=== PATIENT | male | born 2000 | race African-American/Black ===

== ENCOUNTER 2023-02-22 17:40 | Emergency (ER) | payer SELFPAY ==
--- NOTE | ~2023-02-22 | XR_ITS ---
EXAMINATION: XR wrist RT min 3V DATE: 02/22/2023 18:06 INDICATION: Right wrist pain radiating into the hand TECHNIQUE: Posteroanterior, ulnar deviation, oblique, and lateral views of the right wrist were obtai dian. COMPARISON: none FINDINGS: Old healed fracture deformity at the mid to distal right fifth metacarpal. Alignment is otherwise nor mal. No acute fractures identified. Joint spaces are normal. No erosions. Soft tissues are unremarkab le. IMPRESSION: 1. Old healed boxer's fracture of the right fifth metacarpal. No acute osseous abnormality. Reviewed, dictated and finalized at location A.
[2023-02-22 17:57] VITALS: BP 140/83; PULSE 117; RESP 16; TEMP 37; O2SAT 100
--- NOTE | 2023-02-22 18:24 | ED.UPPEXIN ---
HPI - Extremity Injury (Upper) General Chief Complaint: Extremity Injury, Upper Stated Complaint: rt wrist injury Time Seen by Provider: 02/22/23 18:18 Source: patient and RN notes reviewed Mode of arrival: ambulatory Limitations: no limitations History of Present Illness HPI narrative: Patient presents today complaining of right wrist pain. He punched a solid wood armoire yesterday at home after he was mad. Denies numbness or tingling in the arm or hand. Currently rates his pain 7/10 intermittently. Pain increases when he swings a hammer at work. He has been taking ibuprofen without relief. Previous fracture in the 5th metacarpal. Related Data Allergies Allergy/AdvReac Type Severity Reaction Status Date / Time No Known Allergies Allergy Verified 09/09/13 15:01 Review of Systems Review of Systems: CONSTITUTIONAL: Denies body aches, fever, chills, or sweats. EYES: Denies visual changes, redness, or discharge. ENT: Denies rhinorrhea, congestion, sore throat, or otalgia. CARDIOVASCULAR: Denies chest pain, palpitations, or edema. RESPIRATORY: Denies cough or dyspnea. GASTROINTESTINAL: Denies abdominal pain, nausea, vomiting, or diarrhea. GENITOURINARY: Denies dysuria or hematuria. SKIN: Denies rash, itching, or wounds. MUSCULOSKELETAL: + right wrist injury NEUROLOGIC: Denies headache, numbness, tingling, or weakness. PSYCH: Denies depression or anxiety. PMFSH Comments At time of signature, I have reviewed and agree with nursing past medical, surgical, social and family history unless otherwise noted. Please see nursing chart for further information. There is no relevant family history pertinent to the presenting complaint Exam Narrative: GENERAL: Well-appearing, well-nourished, and in no acute distress. HEAD: Normocephalic, atraumatic. EYES: EOMI. No redness or drainage. Conjunctivae normal. ENT: Mucous membranes pink and moist. NECK: Normal AROM. CHEST: No respiratory distress. EXTREMITIES: Right wrist: Mild tenderness to the distal ulna. No deformity, ecchymosis, or edema noted. Mild pain with passive range of motion, especially with pronation and supination. Distal sensation intact. Capillary refill normal. Radial pulse normal. SKIN: Warm, dry, no rash. Capillary refill normal. Normal skin turgor. NEURO: No focal deficits. Alert and oriented x3. Gait steady. PSYCH: Normal affect. No signs of depression or anxiety. Course Course Level of Care: Express Care Visit Vital Signs Vital signs: Vital Signs Temperature 98.6 F 02/22/23 17:57 Pulse Rate 117 H 02/22/23 17:57 Respiratory Rate 16 02/22/23 17:57 Blood Pressure 140/83 02/22/23 17:57 Pulse Oximetry 100 02/22/23 17:57 Temperature 98.6 F 02/22/23 17:57 Pulse Rate 117 H 02/22/23 17:57 Respiratory Rate 16 02/22/23 17:57 Blood Pressure 140/83 02/22/23 17:57 Pulse Oximetry 100 02/22/23 17:57 Reviewed. Pt has been instructed to follow up with his PCP regarding his elevated blood pressure today. MDM - Extremity Injury (Upper) MDM Narrative Medical decision making narrative: X-rays negative for fracture. Will wrap with Jose G wrap for comfort. No prescription medications indicated at this time. Anticipatory guidance given. Differential Diagnosis Differential diagnosis: Likely sprain and strain of wrist and fracture of wrist Imaging Data Radiologist's impression: ITS Impressions Wrist X-Ray 02/22/23 18:14 IMPRESSION: 1. Old healed boxer's fracture of the right fifth metacarpal. No acute osseous abnormality. Critical Care Time Critical Care Time Critical Care Time: No Discharge Plan Discharge Clinical Impression: Right wrist sprain Qualifiers: Encounter type: initial encounter Qualified Code(s): S63.501A - Unspecified sprain of right wrist, initial encounter Patient Disposition: Home, Self-Care Condition: Stable Instructions: Wrist Sprain (ED) Additional Ins
== END 2023-02-22 18:36 | disposition home or self-care (01) ==
PROVIDERS: Emergency Provider Nurse Practitioner
DX: S63.501A Unspecified sprain of right wrist, initial encounter (principal); W22.8XXA Striking against or struck by other objects, initial encounter
CPT/HCPCS: 73110; 99203; G0463

== ENCOUNTER 2023-08-10 09:40 | Emergency (ER) | payer SELFPAY ==
[2023-08-10 09:51] VITALS: BP 120/66; PULSE 71; RESP 16; TEMP 36.6; O2SAT 100
--- NOTE | 2023-08-10 10:32 | ED.BACK ---
HPI - Back Pain/Injury General Chief Complaint: Back Pain/Injury Stated Complaint: Lower back pain Time Seen by Provider: 08/10/23 10:21 Source: patient and RN notes reviewed Mode of arrival: ambulatory Limitations: no limitations History of Present Illness HPI Narrative: Patient presents today with a 5 day history of low back pain. 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 Denies radiation of the pain. Denies numbness or tingling in the legs or genitalia. Currently rates his pain 5/10 at rest, which increases with bending or twisting. Denies loss of bowel or bladder control. He has tried [id number] medication with minimal relief. Patient states he also has chronic low back pain, but this is an exacerbation. Related Data Allergies Allergy/AdvReac Type Severity Reaction Status Date / Time divalproex sodium Allergy Headache Verified 08/10/23 09:48 [From [facility]] Review of Systems Review of Systems: CONSTITUTIONAL: Denies body aches, fever, chills, or sweats. EYES: Denies visual changes, redness, or discharge. ENT: Denies rhinorrhea, congestion, sore throat, or otalgia. CARDIOVASCULAR: Denies chest pain, palpitations, or edema. RESPIRATORY: Denies cough or dyspnea. GASTROINTESTINAL: Denies abdominal pain, nausea, vomiting, or diarrhea. GENITOURINARY: Denies dysuria or hematuria. SKIN: Denies rash, itching, or wounds. MUSCULOSKELETAL: Denies joint pain, or myalgia.+ low back pain NEUROLOGIC: Denies headache, numbness, tingling, or weakness. PSYCH: Denies depression or anxiety. PMFSH Comments At time of signature, I have reviewed and agree with nursing past medical, surgical, social and family history unless otherwise noted. Please see nursing chart for further information. There is no relevant family history pertinent to the presenting complaint Exam Narrative: GENERAL: Well-appearing, well-nourished, and in no acute distress. HEAD: Normocephalic, atraumatic. EYES: EOMI. No redness or drainage. Conjunctivae normal. ENT: Mucous membranes pink and moist. NECK: Normal AROM. CHEST: No respiratory distress. MUSCULOSKELETAL: No bony tenderness of the spine. Patient has bilateral lower lumbar tenderness of the paraspinal muscles, but only when his back is flexed. Distal sensation intact. Saddle sensation intact. capillary refill normal. Dorsiflexion and plantar flexion equal and strong against resistance. EXTREMITIES: Normal range of motion. No edema. SKIN: Warm, dry, no rash. Capillary refill normal. Normal skin turgor. NEURO: No focal deficits. Alert and oriented x3. Gait steady. PSYCH: Normal affect. No signs of depression or anxiety. Course Course Level of Care: Express Care Visit Vital Signs Vital signs: Vital Signs Temperature 97.9 F 08/10/23 09:51 Pulse Rate 71 08/10/23 09:51 Respiratory Rate 16 08/10/23 09:51 Blood Pressure 120/66 08/10/23 09:51 Pulse Oximetry 100 08/10/23 09:51 Temperature 97.9 F 08/10/23 09:51 Pulse Rate 71 08/10/23 09:51 Respiratory Rate 16 08/10/23 09:51 Blood Pressure 120/66 08/10/23 09:51 Pulse Oximetry 100 08/10/23 09:51 Reviewed MDM - Back Pain/Injury MDM Narrative Medical decision making narrative: Patient's symptoms are consistent with lumbar strain. Prescription for Flexeril sent to pharmacy. Patient declines prescription for an anti-inflammatory. No testing indicated at this time. Anticipatory guidance given. Differential Diagnosis Differential diagnosis: Likely lumbar radiculopathy, sciatica and strain of lumbar region Critical Care Time Critical Care Time Critical Care Time: No Discharge Plan Discharge Clinical Impression: Strain of lumbar region Qualifiers: Encounter type: initial encounter Qualified Code(s): S39.012A - Strain of muscle, fascia and tendon of lower back, initial encounter Patient Disposition: Home, Self-Care
== END 2023-08-10 10:41 | disposition home or self-care (01) ==
PROVIDERS: Emergency Provider Nurse Practitioner
DX: S39.012A Strain of muscle, fascia and tendon of lower back, initial encounter (principal); X50.1XXA Overexertion from prolonged static or awkward postures, initial encounter; Y99.0 Civilian activity done for income or pay
CPT/HCPCS: 99213; G0463

== ENCOUNTER 2023-09-26 19:52 | Emergency (ER) | payer OTHER, SELFPAY ==
--- NOTE | ~2023-09-26 | XR_ITS ---
EXAMINATION: XR ankle RT min 3V DATE: 09/26/2023 20:05 INDICATION: Right ankle injury. TECHNIQUE: 4 views of right ankle were obtained. COMPARISON: None. FINDINGS: Bone alignment is normal. No fracture. Joint spaces are normal. IMPRESSION: 1. No fracture. Reviewed, dictated and finalized at location E. OBEDIENCE INSTRUCTOR IMPRESSION: 1. No fracture.
[2023-09-26 19:55] VITALS: BP 126/82; PULSE 81; RESP 16; TEMP 36.7; O2SAT 100
--- NOTE | 2023-09-26 19:55 | ED.LOWEXIN ---
HPI - Extremity Injury (Lower) General Chief Complaint: Extremity Injury, Lower Stated Complaint: R ANKLE INJURY Source: patient Mode of arrival: ambulatory Limitations: no limitations History of Present Illness HPI Narrative: 23-year-old male presented for complaint of right ankle pain after injury today while at work. 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 states he heard and 'audible pop' and felt immediate pain. He laid in the grass a few minutes then was able to get up and walk with minimal pain. He was able to complete his shift. Took Motrin. Denies numbness, tingling or weakness. Has been ambulating. Related Data Home Medications Medication Instructions Recorded Confirmed No Home Medications 09/26/23 09/26/23 Allergies Allergy/AdvReac Type Severity Reaction Status Date / Time divalproex sodium AdvReac Intermediate Headache Verified 09/26/23 19:53 [[facility] Review of Systems Review of Systems: CONSTITUTIONAL: Denies body aches, fever, chills CARDIOVASCULAR: Denies chest pain, palpitations, or edema. RESPIRATORY: Denies cough or dyspnea. SKIN: Denies rash, itching, or wounds. MUSCULOSKELETAL: Reports right ankle pain denies back pain, or myalgia. NEUROLOGIC: Denies headache, numbness, tingling, or weakness. All systems reviewed & are unremarkable except as noted in HPI and below PMFSH Comments At time of signature, I have reviewed and agree with nursing past medical, surgical, social and family history unless otherwise noted. Please see nursing chart for further information. There is no relevant family history pertinent to the presenting complaint Exam Narrative: GENERAL: Well-appearing CHEST: Speaks in full sentences. No respiratory distress. HEART: Regular rate and rhythm. Normal and equal peripheral pulses. EXTREMITIES: Right foot has normal strength and sensation, normal range of motion at ankle but endorses mild pain with movement. Mild TTP posterior to lateral malleous. No swelling or ecchymosis, No open wounds, or obvious deformity; alignment normal, pulse palpable and equal bilaterally, skin warm, dry, pink. Capillary refill less than 3 seconds. SKIN: Warm, dry NEURO: Alert and oriented x3. PSYCH: Normal mood and affect Course Course Emergency Course: Patient is aware of diagnosis, understands and agrees to treatment plan. Anticipatory guidance given. Patient agrees to follow-up as directed and is aware of reasons to seek care at the emergency department. Portions of this record may have been created with voice recognition software Level of Care: Express Care Visit Vital Signs Vital signs: Reviewed MDM - Extremity Injury (Lower) MDM Narrative Medical decision making narrative: Results of x-ray reviewed with patient. SEE applied. Discussed physical exam findings. Advised supportive measures and signs/symptoms to go to the ER. Pt is appropriate for outpt treatment and f/u. Differential Diagnosis Differential diagnosis: Likely ankle sprain and strain and other (ankle fracture) Imaging Data Radiologist's impression: Patient: Apryl Jensen : 2000 MR#: [id number] Age: 23 Acct:[id number] Loc: [facility]? ? ADM Date: 09/26/23Attending Dr: Ordering Physician: Jaci Green APRN Date of Service: 09/26/23 Procedure(s): XR ankle RT min 3V Accession Number(s): [id number] cc: Jaci Green APRN; [employer] WORKER PHYSICIAN~ EXAMINATION: XR ankle RT min 3V DATE: 09/26/2023 20:05 INDICATION: Right ankle injury. TECHNIQUE: 4 views of right ankle were obtained. COMPARISON: None. FINDINGS: Bone alignment is normal. No fracture. Joint spaces are normal. IMPRESSION: 1. No fracture. Discharge Plan Discharge Clinical Impression: Ankle sprain and strain Patient Disposition: Home, Self-Care Condition: Stable Instructions:
== END 2023-09-26 20:13 | disposition home or self-care (01) ==
PROVIDERS: Emergency Provider Nurse Practitioner Family
DX: S93.401A Sprain of unspecified ligament of right ankle, initial encounter (principal); S96.911A Strain of unspecified muscle and tendon at ankle and foot level, right foot, initial encounter; X50.9XXA Other and unspecified overexertion or strenuous movements or postures, initial encounter; Z86.16 Personal history of COVID-19
CPT/HCPCS: 73610; 99213; G0463

== ENCOUNTER 2024-10-17 13:36 | Emergency (ER) | payer OTHER, SELFPAY ==
--- NOTE | ~2024-10-17 | XR_ITS ---
EXAMINATION: XR foot RT min 3V DATE: 10/17/2024 13:58 INDICATION: Right foot injury and pain. TECHNIQUE: 5 views of right foot were obtained. COMPARISON: None. FINDINGS: Alignment is normal. There is a nondisplaced transverse fracture of neck of third metatarsa l. There is a nondisplaced transverse fracture of neck of fourth metatarsal. There is an old avulsion fracture of medial aspect of head of first proximal phalanx with nonunion. 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 IMPRESSION: 1. Acute fractures of the necks of the third and fourth metatarsals. Reviewed, dictated and finalized at location B. [employer]IVER
[2024-10-17 13:48] VITALS: BP 123/84; PULSE 109; RESP 16; TEMP 36.3; O2SAT 98
--- NOTE | 2024-10-17 14:18 | ED.LOWEXIN ---
HPI - Extremity Injury (Lower) General Chief Complaint: Extremity Injury, Lower Stated Complaint: Right Foot Pain Time Seen by Provider: 10/17/24 13:57 Source: patient and RN notes reviewed Mode of arrival: ambulatory (With crutches) Limitations: no limitations History of Present Illness HPI Narrative: Patient presents today complaining of a right foot injury. Yesterday his car broke down, he kicked it injuring his foot. He has been nonambulatory, using crutches since the injury. Denies numbness or tingling in the foot or toes. Currently rates his pain at rest 3/10, increasing to 9/10 with weight-bearing. He has tried some ibuprofen without much relief. Related Data Home Medications ?Medication ?Instructions ?Recorded ?Confirmed ?Last Taken ?Type atomoxetine 25 mg capsule mg PO 10/17/24 Unknown History (Strattera) cariprazine 3 mg capsule (Vraylar) mg 10/17/24 Unknown History Allergies Allergy/AdvReac Type Severity Reaction Status Date / Time divalproex sodium (From AdvReac Intermediate Headache Verified 10/17/24 13:38 Depakote) Review of Systems Review of Systems: CONSTITUTIONAL: Denies body aches, fever, chills, or sweats. EYES: Denies visual changes, redness, or discharge. ENT: Denies rhinorrhea, congestion, sore throat, or otalgia. CARDIOVASCULAR: Denies chest pain, palpitations, or edema. RESPIRATORY: Denies cough or dyspnea. GASTROINTESTINAL: Denies abdominal pain, nausea, vomiting, or diarrhea. GENITOURINARY: Denies dysuria or hematuria. SKIN: Denies rash, itching, or wounds. MUSCULOSKELETAL: Denies back pain. + right foot injury NEUROLOGIC: Denies headache, numbness, tingling, or weakness. PSYCH: Denies depression or anxiety. PMFSH Comments At time of signature, I have reviewed and agree with nursing past medical, surgical, social and family history unless otherwise noted. Please see nursing chart for further information. There is no relevant family history pertinent to the presenting complaint Exam Narrative: GENERAL: Well-appearing, well-nourished, and in no acute distress. HEAD: Normocephalic, atraumatic. EYES: EOMI. No redness or drainage. Conjunctivae normal. ENT: Mucous membranes pink and moist. NECK: Normal AROM. CHEST: No respiratory distress. EXTREMITIES: Right foot: Localized edema and swelling with tenderness at the base of toes 2 through 4. No tenderness or abnormalities for the remainder of the or toes. Distal sensation intact. Capillary refill normal. Pedal pulse normal. Full range of motion of the toes and ankle SKIN: Warm, dry, no rash. Capillary refill normal. Normal skin turgor. NEURO: No focal deficits. Alert and oriented x3. Gait steady. PSYCH: Normal affect. No signs of depression or anxiety. Course Course Level of Care: Express Care Visit Vital Signs Vital signs: Vital Signs Temperature 97.4 F L 10/17/24 13:48 Pulse Rate 109 H 10/17/24 13:48 Respiratory Rate 16 10/17/24 13:48 Blood Pressure 123/84 10/17/24 13:48 Pulse Oximetry 98 10/17/24 13:48 Temperature 97.4 F L 10/17/24 13:48 Pulse Rate 109 H 10/17/24 13:48 Respiratory Rate 16 10/17/24 13:48 Blood Pressure 123/84 10/17/24 13:48 Pulse Oximetry 98 10/17/24 13:48 Reviewed Procedures Orthopedic Splinting/Casting Injury #1: Splinting/Casting Date: 10/17/24 Splinting/Casting Time: 14:21 Side: right Lower Extremity Injury Location: foot Pre-Formed: post op shoe Pre-Procedure Neuro Vascular Exam: normal Post-Procedure Neuro Vascular Exam: normal MDM - Extremity Injury (Lower) MDM Narrative Medical decision making narrative: X-ray shows neck fractures of 3rd and 4th metatarsals. Patient will be placed in a postop shoe to follow-up with orthopedics or podiatry for further treatment. He has been instructed to nonweightbearing. Anticipatory guidance given. Differential Diagnosis Differential diagnosis: Likely other (Foot fracture, toe fracture, contusion) Imaging Data Radiologist's impression: ITS Impressions Foot X-Ray 10/17/24 14:00 IMPRESSION: 1. Acute fractures of the necks of the third and fourth metatarsals. Critical Care Time Critical Care Time Critical Care Time: No Discharge Plan Discharge Clinical Impression: Fracture of metatarsal of right foot, closed Qualifiers: Encounter type: initial encounter Metatarsal bone: unspecified metatarsal Fracture alignment: nondisplaced Qualified Code(s): S92.301A - Fracture of unspecified metatarsal bone(s), right foot, initial encounter for closed fracture Patient Disposition: Home, Self-Care Condition: Stable Instructions: Foot Fracture in Adults (ED) Additional Instructions: Your x-ray shows 2 fractures in your foot. You have been placed in a postop shoe. Please continue to use crutches until follow-up with either Orthopedics or Podiatry. Elevate and ice the foot. Take Tylenol or ibuprofen for pain, if able. Your blood pressure was elevated above 120/80 today at Urgent Care. This puts you above the threshold for follow up. Please schedule a followup visit with your personal physician as soon as possible, for further evaluation and treatment. Even blood pressure exceeding 120/80 may indicate pre-hypertension. Patient Language: Finnish Prescriptions: No Action atomoxetine [Strattera] 25 mg capsule PO Vraylar 3 mg capsule Follow-up/Referrals: Ramin Marie DPM [Physician] - Luigi Chamberlain MD [Physician] - Bari Carver Jr., DPM [Physician] - PHYSICIAN,ESCALATOR OPERATOR [Primary Care Provider] - Stand Alone Forms: Work/School Release IP Time of Disposition: 14:23
== END 2024-10-17 14:25 | disposition home or self-care (01) ==
PROVIDERS: Emergency Provider Nurse Practitioner
DX: S92.301A Fracture of unspecified metatarsal bone(s), right foot, initial encounter for closed fracture (principal); W22.09XA Striking against other stationary object, initial encounter
CPT/HCPCS: 73630; 99214; G0463

== ENCOUNTER 2025-05-10 09:50 | Emergency (ER) | payer SELFPAY ==
--- NOTE | 2025-05-10 09:51 | ED_ITS ---
HPI - Dental/Oral General Chief complaint: Dental/Oral Stated complaint: Tooth Pain Time Seen by Provider: 05/10/25 09:53 Source: patient, RN notes reviewed and old records reviewed Mode of arrival: ambulatory Limitations: no limitations History of Present Illness HPI Narrative: 24-year-old male presents to the [facility] with left upper and lower dental pain. Has not seen a dentist in many years. Has been taking Tylenol Motrin. Related Data Home Medications ?Medication ?Instructions ?Recorded ?Confirmed ?Last Taken ?Type atomoxetine 25 mg capsule mg PO 10/17/24 Unknown History (Strattera) cariprazine 3 mg capsule (Vraylar) mg 10/17/24 Unknown History Allergies Allergy/AdvReac Type Severity Reaction Status Date / Time divalproex sodium (From AdvReac Intermediate Headache Verified 05/10/25 09:58 Depakote) Review of Systems Review of Systems: All systems reviewed & are unremarkable except as noted in HPI and below Constitutional: Constitutional: Reports no additional constitutional complaints ENT: Reports as per HPI and Reports dental pain PMFSH Comments At the time of my signature, I reviewed and agree with the nursing past medical, surgical, social, and family history. There is no relevant family history pertinent to the patient complaint. Exam Const: General: cooperative, healthy appearing, comfortable, no acute distress, well developed, alert and well nourished Nutritional Appearance: well nourished Orientation/consciousness: patient oriented x3 Limitations: no limitations HENMT: Head: normal to inspection Ears: hearing grossly normal bilaterally, external ears normal, TM's normal bilaterally, EAC's normal, mastoids normal and no periauricular adenopathy Face/Nose/Sinus: Normal external nose present Face and sinus: normal facial exam, face symmetric, no ecchymosis, no erythema and no edema Mouth: Yes Normal oral and palatal mucosa present, Yes lip normal, Yes tongue normal and Yes moist mucous membranes Teeth and gingiva: fair dentition and gingiva abnormal diffusely erythematous (Left posterior upper and left posterior lower around posterior molars) and receding Throat: posterior oropharynx normal, uvula midline and no uvular edema Eyes: General: appearance normal, both eyes and all related structures Alignment and Position: alignment normal Neck: Neck: normal visual inspection, full ROM, no lymphadenopathy and no meningeal signs Chest: Chest palpation & inspection: normal inspection of the chest Resp: Effort & Inspection: normal respiratory effort and able to speak in complete sentences Cardio: Rate: regular rate Skin: General skin exam: normal color and no rashes or lesions noted Neuro: General: patient oriented x3, gait normal, moves all extremities and no meningeal signs Cognition (Neuro): normal cognition Speech: normal speech Gait exam (Neuro): Normal gait present Extrem: General: normal to inspection, full ROM, capillary refill normal and normal gait Psych: Appearance: grossly normal and well kempt Mental Status: mental status grossly normal Speech and movement: Normal speech and movement present and Clear speech present Affect: normal affect Attitude: cooperative Course Course Level of Care: Express Care Visit Vital Signs Vital signs: Vital Signs Temperature 97.6 F 05/10/25 09:56 Pulse Rate 69 05/10/25 09:56 Respiratory Rate 18 05/10/25 09:56 Blood Pressure 117/75 05/10/25 09:56 Pulse Oximetry 99 05/10/25 09:56 Temperature 97.6 F 05/10/25 09:56 Pulse Rate 69 05/10/25 09:56 Respiratory Rate 18 05/10/25 09:56 Blood Pressure 117/75 05/10/25 09:56 Pulse Oximetry 99 05/10/25 09:56 Reviewed MDM - Dental/Oral MDM Narrative Medical decision making narrative: Patient sitting in exam room. Patient presents with 4-5 day history of dental pain upper and lower. Vitals are stable Patient has poor dentition, has not seen a dentist in many years Erythema, swelling noted to upper greater than lower posterior molars. List of dental providers given Patient appropriate for outpatient treatment with antibiotic, ibuprofen Discharge instructions reviewed with patient, as well as provided in writing per nursing staff. The instructions also include specific and strict return/GO TO THE ER as well as f/u information. All questions have been answered, and the patient deny any further questions with discharge and discharge plan. Some parts of this dictation were generated by voice recognition software and may contain typographical and/or grammatical inaccuracies. Differential Diagnosis Differential diagnosis: Likely gingival abscess, dental caries, toothache, dental abscess and fracture of tooth Critical Care Time Critical Care Time Critical Care Time: No Discharge Plan Discharge Clinical Impression: Toothache, Dental caries, Dental infection Patient Disposition: Home Condition: Stable Instructions: Antibiotic Form, Dental Abscess (ED) Additional Instructions: Finish the entire course of antibiotics [place] teeth and using good mouthwash twice daily After every time you eat be sure to use salt water rinses. Apply ice to face to help with pain. Take Tylenol alternating with Motrin as needed for pain. You can alternate every 4 hours You need to follow-up with a dental provider as soon as possible for further evaluation and treatment. A list of dental providers has been given to you Follow up with a Primary Care Provider (PCP) about medical needs. A PCP can help keep you healthy by preventive medicine and screening. Go to the ER for New or worsening symptoms. Patient Language: [place] Prescriptions: New penicillin V potassium 500 mg tablet 500 mg PO QID 7 Days Qty: 28 0RF ibuprofen 600 mg tablet 600 mg PO TID PRN (Reason: fever or pain) Qty: 30 0RF No Action atomoxetine [Strattera] 25 mg capsule PO Vraylar 3 mg capsule Follow-up/Referrals: PHYSICIAN,WILDLIFE BIOLOGIST [Primary Care Provider] - Bernardino Moreno MD [Physician] - 1 Week Stand Alone Forms: Work/School Release IP Time of Disposition: 10:13
[2025-05-10 09:56] VITALS: BP 117/75; PULSE 69; RESP 18; TEMP 36.4; O2SAT 99
== END 2025-05-10 10:15 | disposition home or self-care (01) ==
PROVIDERS: Emergency Provider Nurse Practitioner
DX: K02.9 Dental caries, unspecified (principal); K04.7 Periapical abscess without sinus
CPT/HCPCS: 99213; G0463